=== PATIENT | male | born 2005 | race Caucasian/White ===

== ENCOUNTER 2024-11-13 02:01 | Emergency (ER) | payer MEDICAID ==
[~2024-11-13] VITALS: Ht 175.3 cm; Wt 121.5 kg
[2024-11-13 02:07] VITALS: BP 156/76; PULSE 100
[2024-11-13 02:35] LABS: BILIRUBIN,URINE NEGATIVE (Neg); CLARITY,URINE CLEAR (Clear); COLOR,URINE YELLOW (Yellow); GLUCOSE, URINE NEGATIVE (Neg); KETONES,URINE NEGATIVE (Neg); LEUKOCYTE ESTERASE ,URINE NEGATIVE (Neg); NITRITES, URINE NEGATIVE (Neg); OCCULT BLOOD,URINE NEGATIVE (Neg); PROTEIN,URINE NEGATIVE (Neg); UROBILINOGEN,URINE 0.2 E.U/dL (0.2-1.0)
[2024-11-13 02:43] LABS: UA COLLECTION TYPE CLN CATCH MIDSTREAM
[2024-11-13] MEDS: ibuprofen tablet 400 MG TABLET PO ONE (02:54)
[2024-11-13] MEDS: acetaminophen 325mg tablet PO ONE (02:55)
[2024-11-13] MEDS ORDERED: DOXY-460 PO (03:45)
[2024-11-13 03:55] VITALS: RESP 14; TEMP 98.9; O2SAT 100
[2024-11-13] MEDS: ondansetron 4mg rapidly disintigrating tab PO ONE (03:57)
[2024-11-13] MEDS: DOXYCYCLINE 100MG CAPSULE PO STA (03:57)
== END 2024-11-13 04:02 | disposition home or self-care (01) ==
LOC: ER 02:02
DX: N50.811 Right testicular pain (principal)
CPT/HCPCS: 76870; 81003; 93976; 99284